=== PATIENT | female | born 1935 | race Caucasian/White ===

== ENCOUNTER 2016-11-15 16:40 | Emergency (ER) | payer OTHER ==
--- NOTE | 2016-11-15 16:56 | PDOC ---
Fall HPI - General Chief Complaint: Fall Stated Complaint: unattended fall Date Seen by Provider: 11/15/16 Time Seen by Provider: 16:51 Source: POSITIVE: Patient Exam Limitations: POSITIVE: Physical impairment Nurse's Notes Reviewed & Considered: Yes - History of Present Illness Initial Comments: Patient is brought in by family member after sustaining a fall and laceration to the right parietal region of her head. She experienced an unwitnessed fall. Exact mechanism is uncertain. She sustained a laceration to her right lateral head, most likely having come in contact with the metal foot of a table while sitting on the porch at home. The patient denies any loss of consciousness. No other injuries are noted. Have you received a tetanus shot in the past 10 years?: No Body Location Affected: REPORTS: Head Timing: REPORTS: Abrupt Duration: 1 hour Severity: Moderate Context of Fall: REPORTS: Lost Balance Location of Fall: REPORTS: Home Associated Symptoms: REPORTS: Recalls Coming to ER, Blow to Head Location of Injuries / Pain: REPORTS: Right, Head Any Prior Injuries Related to Current Complaint?: No - Patient Home Medications Home Medications: Home Medications Dilantin 300 mg PO DAILY 12/18/10 Alendronate Sodium [Fosamax] 35 mg PO WEEKLY 11/15/16 - Patient Allergies Allergies/Adverse Reactions: Allergies Allergy/AdvReac Type Severity Reaction Status Date / Time No Known Allergies Allergy Verified 11/15/16 16:46 Past Medical History - heen HEENT History: Denies History Cardiovascular History: Denies History Respiratory History: Denies History Gastrointestinal History: Other (please comment) Additional Gastrointestinal History: 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 Genitourinary History: Denies History Endocrine History: Denies History Musculoskeletal History: Denies History Prosthesis or Implant: No Neurological History: Seizures Blood Disorders: Denies History Psychiatric History: Denies History History of Sexually Transmitted Diseases: No Cancer History: Denies History History of MDRO: No History of Other Communicable Diseases: No Alcohol Use: None Substance Use Type: None Previous Surgical History: Yes Type / Date of Surgery: SBO REPAIR Anesthesia Reactions: No Malignant Hyperthermia: No Significant Family History: No pertinent family hx ROS - Limitations ROS Limitations: Mental Impairment Constitution: REPORTS: Denies Symptoms Cardiovascular: REPORTS: Denies Cardiac Symptoms Respiratory: REPORTS: Denies Resp Symptoms Neurological: REPORTS: Other (Laceration to the right parietal region, no other neurological symptoms reported.) Gastrointestinal: REPORTS: Denies GI Symptoms Endocrine: REPORTS: Denies Symptoms Musculoskeletal: REPORTS: Denies MS Symptoms Genitourinary: REPORTS: Denies Symptoms Eyes: REPORTS: Denies Symptoms ENT: REPORTS: Denies Symptoms Skin: REPORTS: Denies Skin Symptoms Lympathic: REPORTS: Denies Lympathic Symptoms Immunologic: POSITIVE: Denies Symptoms Psychiatric: POSITIVE: Denies Psych Symptoms Fall Physical Exam - General Appearance General Appearance: POSITIVE: Alert, Cooperative, No Acute Distress - HEENT HEENT: POSITIVE: Eyes Inspection Nml, Ears Inspection Nml, Nose Inspection Nml, Oral/Dental Inspect. Nml, Pharynx Inspect. 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 Wound Length (cm): 5 Wound's Depth, Shape: Into subcutaneous tissue, Irregular (Y shaped) Time of Suture Placement:: 18:39 Distal CMS: Yes Skin Prep: Shur-Clens, Other (Normal saline irrigation) Local Anesthesia Used - Indicate Amt Used in Comment: Lidocaine 1% with Epinephrine: Yes Irrigated w/ Saline (mL): 20 Wound Explored: Clean Wound Debrided: Minimal Number of Trish: 6 Layer Closure?: No Drain Placement: No Sterile Dressing Applied?: No Splint Applied?: No Sling Applied?: No Procedure Note:: After obtaining informed verbal consent the area around her wound was cleaned with Shur-Clens, irrigated with normal saline. Anesthesia was obtained using 1 % lidocaine with epinephrine which was infiltrated into the area around the wound. This resulted in excellent anesthesia. A total of 6 trish were applied with good skin edge reapproximation and good hemostasis. Patient tolerated this well. She receives instructions in wound care. Instructions for staple removal in 7 days. Fall Progress - Results Reviewed by me Xrays/CTs/US Reviewed by me: Yes Discussed with Radiologist: Yes Lab Results Reviewed: Yes Lab Results:: Laboratory Results 11/15/16 Range/Units 17:50 WBC 11.29 H (4.8-10.8) 10^3/uL RBC 4.71 (4.20-5.40) 10^6/uL Hgb 14.8 (12.0-16.0) g/dL Hct 44.4 (37.0-47.0) % MCV 94.3 (81-99) FL MCH 31.4 H (27-31) PG MCHC 33.3 (33-37) g/dL RDW Std Deviation 42.6 (39-50) fL RDW Coeff of Cris 12.6 (11.5-14.5) % Plt Count 143 (140-350) 10*3/uL MPV 9.9 (7.4-12.2) FL Immature Gran % (Auto) 0.2 (0-5) % Neut % (Auto) 87.5 H (50-80) % Lymph % (Auto) 7.2 L (10-50) % [place] % (Auto) 5.0 (5-15) % Eos % (Auto) 0 (0-8) % Baso % (Auto) 0.1 (0-1) % Immature Gran # (Auto) 0.02 10*3/UL Neut # (Auto) 9.89 10*3/UL Lymph # (Auto) 0.81 10*3/uL [place] # (Auto) 0.56 (0.3-0.8) 10*3/UL Eos # (Auto) 0 10*3/UL Baso # (Auto) 0.01 10*3/UL WBC Morphology Comment Normal morphology (NORM) Plt Morphology Comment Normal morphology (NORM) RBC Morph Comment Normal morphology (NORM) PT 10.9 (9.7-11.4) secs INR 1.06 (0.00-5.90) N/A Sodium 138 (135-145) meq/L Potassium 4.4 (3.8-5.2) meq/L Chloride 101 (98-112) meq/L Carbon Dioxide 26 (23-33) meq/L Anion Gap 11 (5-20) BUN 22 (7-22) mg/dL Creatinine 0.6 (0.50-1.20) mg/dL Estimated GFR (>60 ml/min/1.73m(2)) BUN/Creatinine Ratio 36.66 H (6-20) Glucose 115 H (78-110) mg/dL Calculated Osmolality 289.0 (267-292) mOsm/kg Calcium 9.0 (8.7-10.7) mg/dL Magnesium 2.1 (1.6-2.4) mg/dL Total Bilirubin 0.6 (0.3-1.2) mg/dL AST 26 (8-39) IU/L ALT 28 (9-52) IU/L Alkaline Phosphatase 84 (38-126) IU/L Total Protein 7.1 (6.1-8.0) g/dL Albumin 4.1 (3.5-4.8) g/dL Globulin 3.0 (2.50-4.10) g/dL Albumin/Globulin Ratio 1.30 (1.3-2.0) mg/g EKG Interpretation:: POSITIVE: Normal Sinus Rhythm - Patient's Progress Pain Medication Addressed: POSITIVE: Patient Refused Re-Examine Time:: 18:40 Status: POSITIVE: Improved MDM / ED Course: Patient was examined, blood drawn and sent to the lab for studies, radiographic examinations and EKG obtained. Findings: EKG per my interpretation shows normal sinus rhythm. CT scan of her head shows no acute intracranial abnormalities. INR is normal. CBC is within normal limits. Comprehensive metabolic panels within normal limits. Neck Assessment: Fall with scalp laceration and staple repair. Plan: Discharge home, follow up with primary care physician next week, staple removal in 7 days. Patient Care Time - Estimated PCT Patient Care Time (In Minutes): 45 Vital Signs - Recent Vital Signs Vital Signs: Vital Signs (Last 8 hours) Temp Pulse Resp BP Pulse Ox 11/15/16 16:49 97.6 F 93 16 130/65 95 - VS Reviewed Vital Signs Reviewed: Yes Discharge Clinical Impression: Fall, Laceration of scalp Discharge Disposition: Discharged to Home Condition: Stable Patient Instructions Given at Discharge: Laceration (ED), Contusion in Adults ( ED), Concussion (ED)
[2016-11-15 17:24] VITALS: RESP 16; TEMP 97.6
--- NOTE | 2016-11-15 17:55 | EKG ---
[facility] Measurements Intervals [place] Rate: P: [place]: QRS: QRSD: T: QT: QTc: Interpretive Statements No previous ECG available for comparison Electronically Signed On 11-17-16 08:17:41 MDT by Mikhail Morales MD [email or web address]
[2016-11-15 17:57] LABS: BASOPHILS # (AUTO) 0.01 10*3/UL; BASOPHILS % (AUTO) 0.1 % (0-1); EOSINOPHILS # (AUTO) 0 10*3/UL; EOSINOPHILS % (AUTO) 0 % (0-8); HEMATOCRIT 44.4 % (37.0-47.0); HEMOGLOBIN 14.8 g/dL (12.0-16.0); LYMPHOCYTES # (AUTO) 0.81 10*3/uL; MEAN CORPUSCULAR HEMOGLOBIN 31.4 PG (27-31); MEAN CORPUSCULAR HGB CONC 33.3 g/dL (33-37); MEAN CORPUSCULAR VOLUME 94.3 FL (81-99); MEAN PLATELET VOLUME 9.9 FL (7.4-12.2); MONOCYTES # (AUTO) 0.56 10*3/UL (0.3-0.8); NEUTROPHILS # (AUTO) 9.89 10*3/UL; NEUTROPHILS % (AUTO) 87.5 % (50-80); RED BLOOD COUNT 4.71 10^6/uL (4.20-5.40)
[2016-11-15 17:58] LABS: PLATELET MORPHOLOGY COMMENT NORMAL MORPHOLOGY (NORM); RBC MORPHOLOGY COMMENT NORMAL MORPHOLOGY (NORM); WBC MORPHOLOGY COMMENT NORMAL MORPHOLOGY (NORM)
[2016-11-15 18:06] LABS: BUN/CREATININE RATIO 36.66 (6-20); MAGNESIUM 2.1 mg/dL (1.6-2.4); SERUM ALBUMIN 4.1 g/dL (3.5-4.8)
[2016-11-15] MEDS ORDERED: LIDOCAINE HCL 1%/EPI 1:100,000 - 20 ML VIAL ONE (18:18)
[2016-11-15] MEDS ORDERED: LIDOCAINE HCL 1%/EPI 1:100,000 - 20 ML VIAL SUBCUT ONE (18:30)
--- NOTE | 2016-11-18 11:07 | EKG ---
[facility] [place] Measurements Intervals [place] Rate: P: [place]: QRS: QRSD: T: QT: QTc: Interpretive Statements No previous ECG available for comparison Electronically Signed On 11-18-16 16:19:46 MDT by Kristopher Wright [id number]
== END 2016-11-15 19:14 | disposition home or self-care (01) ==
LOC: ER 16:40
DX: S01.01XA Laceration without foreign body of scalp, initial encounter (principal); W01.198A Fall on same level from slipping, tripping and stumbling with subsequent striking against other object, initial encounter
CPT/HCPCS: 12002; 36415; 70450; 80053; 83735; 85025; 85610; 93005; 93010; 99282